=== PATIENT | female | born 1990 | race Caucasian/White ===

== ENCOUNTER 2017-07-19 08:55 | Day surgery (SDC) | payer OTHER ==
--- NOTE | 2017-07-18 18:10 | HISTORY & PHYSICAL EXAMINATION ---
DATE OF ADMISSION: 07/19/2017 CHIEF COMPLAINT: demise at 8 weeks 6 days. HISTORY OF PRESENT ILLNESS: The patient is a 27-year-old 3, para 1, had 1 previous AB. Her general health is complicated by an endometriosis. She has had 2 laparoscopies. She had a previous full term . Last menstrual period for this is uncertain, it was sometime in April 2017. She has been on Diclegis and vitamins for nausea and vomiting. She underwent her first ultrasound on 07/18/2017 which showed an intrauterine of 8 weeks 6 days. No yolk sac, no heartbeat, presently being scheduled for an outpatient D&E. PAST MEDICAL HISTORY: She has 1 child in good health. ALLERGIES: She has no known drug allergies. PAST SURGICAL HISTORY: She has had 2 laparoscopies. MEDICAL HISTORY: She has had nausea associated with her . SOCIAL HISTORY: No smoking, no excessive alcohol intake. She is employed. FAMILY HISTORY: Mom is 59 and has arthritis. Father 59 diabetes. One brother and one sister have congenital hearing loss. REVIEW OF SYSTEMS: HEAD: No symptoms of frequent or severe headaches. EYES: No symptoms of blurred vision, double vision. EARS: No symptoms of frequent ear infections, difficulty hearing. NOSE: No symptoms of frequent nosebleeds, difficulty breathing through her nose. THROAT: No symptoms of frequent or severe sore throat, difficulty swallowing. RESPIRATORY SYSTEM: No history of asthma, chest pain, shortness of breath. PHYSICAL EXAMINATION: GENERAL: Well-developed, well-nourished 27-year-old white female, alert, oriented x3 and cooperative in no acute distress, appears stated age. EYES: Conjunctivae are pink, sclerae white, no evidence of jaundice. EARS: Had normal light reflex bilaterally. NOSE: Had normal mucosa. Septum is midline. There were no polyps. THROAT: No erythema or evidence of infection. Teeth are in good state of repair. HEAD: Was normocephalic, normal distribution of hair. NECK: Supple. Trachea midline. Thyroid is not enlarged. There is no adenopathy appreciated. Both carotids are of good intensity. CHEST: Clear to auscultation and percussion. No wheezes, rales or rhonchi appreciated. HEART: Regular rhythm. S1 and S2 are normal. BREASTS: Normal. ABDOMEN: Soft and nontender. PELVIC: Revealed normal-appearing cervix. Uterus was 8-9 weeks' gestational size. No adnexal masses appreciated. MUSCULOSKELETAL: Revealed no calf tenderness. IMPRESSIONS OF THIS CASE: Status post 2 laparoscopies and demise at 8 weeks and 6 days' gestation. MTDD
[~2017-07-19] VITALS: Ht 165.1 cm; Wt 69.4 kg
[~2017-07-19 08:55] MED LIST: ALBUAER INH; PRENTAB26 PO
[2017-07-19 09:17] VITALS: BP 107/61; PULSE 80; TEMP 37.3; O2SAT 100; Ht 165.1 cm; Wt 69.4 kg
[2017-07-19] MEDS ORDERED: MIDAZOLAM HCL 1 MG/ML 2ML VIAL ONE (09:17)
[2017-07-19] MEDS ORDERED: FENTANYL CITRATE INJ 50 MCG/1 ML 2 ML VIAL ONE (09:17)
--- NOTE | 2017-07-19 09:35 | History & Physical Bridge Note ---
H&P Re-Evaluation Bridge Note: I have examined the patient, reviewed the History & Physical and in the interval since the performance of the History & Physical I have noted the following changes of clinical significance: No changes noted
[2017-07-19] MEDS ORDERED: LIDOCAINE HCL 2% 2 ML VIAL (20MG/ML) ONE (10:14)
[2017-07-19] MEDS ORDERED: PROPOFOL IV EMULSION 10 MG/ML 20 ML VIAL IV ONE (10:14)
[2017-07-19] MEDS ORDERED: OXYTOCIN INJ 10 UNITS/ML VIAL ONE (10:14)
[2017-07-19] MEDS ORDERED: DEXAMETHASONE SOD INJ 4 MG/ML VIAL ONE (10:14)
[2017-07-19] MEDS ORDERED: ONDANSETRON INJ 2 MG/ML 2 ML VIAL ONE (10:14)
[2017-07-19] MEDS ORDERED: SODIUM CHLORIDE 0.9% 1000ML 1,000 ML IV SCH (10:26)
--- NOTE | 2017-07-19 10:29 | [facility] Post Operative Brief Note ---
Immediate Operative Summary Operative Date Jul 19, 2017. Pre-Operative Diagnosis Missed Post-Operative Diagnosis Missed Procedure(s) Performed Dilation and Evacuation Surgeon Dr Danielson Mushroom Grower Surgeon(s) None Estimated Blood Loss 50 ML Findings 8 WEEKS SIZE UTERUS Specimens A: Products of conception Complication(s) None Disposition Recovery Room / PACU
[2017-07-19] MEDS ORDERED: IBUPROFEN 600 MG TAB PO PRN (10:30)
[2017-07-19] MEDS ORDERED: OXYCODONE/ACETAMINOPHEN 5-325 TAB PO PRN (10:30)
[2017-07-19] MEDS ORDERED: HYDROCODONE/ACETAMIN 5/325MG TAB PO PRN ×2 (10:30)
[2017-07-19] MEDS ORDERED: KETOROLAC TROMETHAMINE 30 MG/ML VIAL IV. PRN (10:30)
[2017-07-19] MEDS ORDERED: ONDANSETRON INJ 2 MG/ML 2 ML VIAL IV PRN ×2 (10:30→10:45)
--- NOTE | 2017-07-19 10:31 | Discharge Instructions ---
Discharge Instructions Date of Service Jul 19, 2017. Visit Reason for Visit: Missed Discharge Discharge Diagnosis / Problem: DEMISE AT 8 WEEKS GESTATION Discharge Goals Goal(s): Therapeutic intervention Activity Recommendations Activity Limitations: as noted below ACTIVITY RECOMMENDATIONS: * Avoid tampons, douching, hot tubs, pools, and intercourse until bleeding has stopped. * May shower as usual. * No strenuous activity for 24-48 hours. After 24-48 hours, you may do anything you feel like doing (driving and sports are okay). SPECIAL CARE INSTRUCTIONS: Special Diet: * Mild nausea may occur in the immediate post-operative period. * Take clear liquids such as tea, cola or bouillon until all nausea has subsided; you may then resume your normal diet. Special Care: * Light bleeding and vaginal spotting can last from a few days to 3-4 weeks. Call your doctor if bleeding becomes heavier than the heaviest part of your period. * Check your temperature twice a day for one week. If it goes above 100.4 degrees Fahrenheit (38.0 Celsius), notify your doctor. * Call your doctor's office for an appointment for 6 weeks after your surgery. FOLLOW-UP VISIT: Call your doctor's office for an appointment for 6 weeks after your surgery. Anesthesia . Post Anesthesia Instructions: If you have had General Anesthesia or IV Sedation: * Do not drive today. * Resume driving when surgeon permits. * Do not make important decisions or sign legal documents today. * Call surgeon for: 1. Temperature elevations greater than 101 degrees F. 2. Uncontrollable pain. 3. Excessive bleeding. 4. Persistent nausea and vomiting. 5. Medication intolerance (nausea, vomiting or rash). * For nausea and vomiting use only clear liquids such as: tea, soda, bouillon until nausea subsides, then gradually increase diet as tolerated. * If you have any concerns or questions, call your surgeon's office. If physician is unavailable and it is an emergency, call 911 or go to the nearest emergency room. . Instructions / Follow-Up Instructions / Follow-Up ACTIVITY RECOMMENDATIONS: * Avoid tampons, douching, hot tubs, pools, and intercourse until bleeding has stopped. * May shower as usual. * No strenuous activity for 24-48 hours. After 24-48 hours, you may do anything you feel like doing (driving and sports are okay). SPECIAL CARE INSTRUCTIONS: Special Diet: * Mild nausea may occur in the immediate post-operative period. * Take clear liquids such as tea, cola or bouillon until all nausea has subsided; you may then resume your normal diet. Special Care: * Light bleeding and vaginal spotting can last from a few days to 3-4 weeks. Call your doctor if bleeding becomes heavier than the heaviest part of your period. * Check your temperature twice a day for one week. If it goes above 100.4 degrees Fahrenheit (38.0 Celsius), notify your doctor. * Call your doctor's office for an appointment for 6 weeks after your surgery. FOLLOW-UP VISIT: Call your doctor's office for an appointment for 6 weeks after your surgery. Diet Recommendations Recommended Home Diet: resume previous diet Procedures Procedures Performed: Dilation and Evacuation Pending Studies Studies pending at discharge: no Medical Emergencies . Who to Call and When: Medical Emergencies: If at any time you feel your situation is an emergency, please call 911 immediately. . Non-Emergent Contact Non-Emergency issues call your: [employer] Maker Call Non-Emergent contact if: temperature is above 100.5 . . "Provider Documentation" section prepared by Bandar Danielson. .
--- NOTE | 2017-07-19 10:44 | OPERATIVE REPORT ---
DATE OF OPERATION: 07/19/2017 PROCEDURE: Suction sharp evacuation of uterine cavity. INDICATIONS FOR SURGERY: Intrauterine demise at 8+ weeks gestation. PREOPERATIVE DIAGNOSIS: demise at 8 weeks gestation. POSTOPERATIVE DIAGNOSIS: Same. PATHOLOGY: Pending. SURGEON: Dr. Danielson. ESTIMATED BLOOD LOSS: 50 mL ANESTHESIA: General. OPERATIVE FINDINGS AND PROCEDURE: The patient was brought to the OR table, correctly identified by armband and conversation. General anesthesia was administered. The patient was positioned on the OR table in candy cane stirrups. Perineum and vagina were painted with Betadine paint, draped in usual sterile fashion. Catheter was used to empty the bladder. Careful pelvic exam under anesthesia revealed an 8-9 weeks' size uterus, which was anteverted. There were no adnexal masses appreciated. A weighted speculum was placed in the posterior vagina. Anterior lip of the cervix was grasped with an Allis. Cervix was dilated with graduated dilators and then a #8 suction curette was placed in the uterine cavity. Suction was applied, amniotic fluid and placental tissue could be seen coming through the curette. Following evacuation with the suction curette, a sharp curette was placed in the uterine cavity. All 4 quadrants were gently curetted. There were additional pieces of placental tissue that were removed and then the suction curette was reapplied to remove all remaining tissue fragments and blood clots. Following this, instruments were removed and with IM Methergine and IV Pitocin running and a bimanual massage, the uterus contracted nicely. Hemostasis was good. The patient tolerated the procedure well and left the OR in good condition. I attest to the content of the Intraoperative Record and any orders documented therein. Any exception s are noted below.
[2017-07-19] MEDS ORDERED: EpHEDrine SULFATE INJ 50 MG/ML AMP IV PRN (10:45)
[2017-07-19] MEDS ORDERED: ATROPINE SULFATE 0.1 MG/ML 5ML SYR IV PRN (10:45)
[2017-07-19] MEDS ORDERED: FENTANYL CITRATE INJ 50 MCG/1 ML 2 ML VIAL IV PRN (10:45)
[2017-07-19] MEDS ORDERED: METHYLERGONOVINE MALEATE 0.2 MG/ML AMP ONE (10:48)
--- NOTE | 2017-07-19 11:16 | Anesthesiology Progress Note ---
Anesthesia Post Op Note Date & Time Jul 19, 2017 at 11:16 Vital Signs Pain Intensity: 0 Vital Signs Past 12 Hours Date Time Temp Pulse Resp B/P (MAP) Pulse Ox O2 Delivery O2 Flow Rate FiO2 07/19/17 11:00 75 17 102/65 100 Room Air 07/19/17 10:50 86 13 112/73 100 Oxymask 10 07/19/17 10:40 64 12 91/52 99 Oxymask 10 07/19/17 10:34 36.1 63 12 89/59 98 Oxymask 10 07/19/17 09:17 37.3 80 18 107/61 (76) 100 Room Air Notes Mental Status: alert / awake / arousable, participated in evaluation Pt Amnestic to Procedure: Yes Nausea / Vomiting: adequately controlled Pain: adequately controlled Airway Patency, RR, SpO2: stable & adequate BP & HR: stable & adequate Hydration State: stable & adequate Anesthetic Complications: no major complications apparent
[2017-07-19 11:30] VITALS: BP 99/56; PULSE 70; TEMP 36.8; O2SAT 99
[2017-07-19 12:00] VITALS: BP 98/55; PULSE 66; TEMP 36.8; O2SAT 99
== END 2017-07-19 12:15 | disposition home or self-care (01) ==
LOC: C.ACU 08:55
PROVIDERS: ATTEND Obstetrics & Gynecology
DX: O02.1 Missed abortion (principal); J45.909 Unspecified asthma, uncomplicated; Z82.61 Family history of arthritis; Z83.3 Family history of diabetes mellitus

== ENCOUNTER 2022-04-08 05:06 | Inpatient (IN) ==
--- NOTE | 2022-03-28 15:41 | PAT Medication Instructions ---
Medication Instructions Date of Service March 28, 2022 Home Medications Collagen Liquid 2 dose PO DAILY albuterol sulfate 90 mcg/actuation aerosol inhaler 2 puff inhalation UD PRN ASTHMA biotin 5,000 mcg disintegrating tablet 5,000 mcg PO DAILY STOP taking 2 weeks before surgery (or as soon as possible if surgery is within 2 weeks) Collagen Liquid 2 dose PO DAILY DO NOT take the morning of surgery biotin 5,000 mcg disintegrating tablet 5,000 mcg PO DAILY Take morning of surgery With a small sip of water, OTHERWISE NOTHING TO EAT OR DRINK AFTER MIDNIGHT: albuterol sulfate 90 mcg/actuation aerosol inhaler 2 puff inhalation UD PRN ASTHMA (use if needed; please bring rescue inhaler with you to hospital day of surgery if possible) Take evening before surgery albuterol sulfate 90 mcg/actuation aerosol inhaler 2 puff inhalation UD PRN ASTHMA (if needed) Other Notes If you have any questions please call us at [phone] or [phone] or [phone] or [phone]
--- NOTE | 2022-03-31 14:25 | Anesthesiology Consultation ---
Date of Service March 31, 2022 Assessment & Plan (1) Encounter for pre-operative examination: - COVID screening: Per assessment on 03/31: No known COVID-19 positive contacts or current COVID-19 related symptoms. Travel screen negative x2+ weeks. At surgeon discretion if preop Covid testing being done. - S/P Laparoscopic evaluation (12/31/2020): MAC#3, ETT 7.0, atraumatic at [facility]. No issues noted per post-op anesthesia progress note. - Check test AM DOS Chart Review Chart Review: Acceptable Risk for Surgery and Patient seen in Pre Admission Testing Teaching & Discussion Pre-Anesthesia Teaching/Discussion Notes: Instructed NPO after midnight before surgery,except medications with 15 cc of water. Medication instructions provided according to the PAT guidelines. History Surgery Operation Date: 04/08/22 11:15 Proposed Procedures p Total Abdominal Hysterectomy - Bandar Danielson MD Height/Weight Height: 5 ft 5 in Weight: 67 kg Allergies Allergy/AdvReac Type Severity Reaction Status Date / Time adhesive Allergy Unknown Rash Verified 03/31/22 14:22 (bandaids) Medications Home Medications Medication Instructions Recorded Confirmed Last Taken Collagen Liquid 2 dose PO DAILY 12/10/20 03/28/22 Unknown albuterol sulfate 90 mcg/actuation 2 puff inhalation UD PRN ASTHMA 12/10/20 03/28/22 Unknown aerosol inhaler biotin 5,000 mcg disintegrating 5,000 mcg PO DAILY 12/10/20 03/28/22 Unknown tablet Vitamin D 1 tab PO DAILY 03/31/22 Unknown Past Medical History Medical History Asthma Controlled Endometriosis History of blood pressure problems Gestational elevated BPs History of hemolysis, elevated liver enzymes, and low platelet (HELLP) syndrome History of pre-eclampsia Exercise / Class Metabolic Activity II 4-5 Yardwork/Stairs/Walk up hill (one FS (no CP, no SOB)) Past Family History Family History Aunt Family history of colon cancer Family history of brain cancer Uncle Family history of colon cancer Aunt Family history of colon cancer Uncle Family history of colon cancer Uncle Family history of colon cancer Uncle Family history of colon cancer Uncle Family history of colon cancer Uncle Family history of colon cancer Uncle Family history of colon cancer Other Family history of diabetes mellitus in father Past Surgical History Surgical History History of D&C History of gynecologic surgery Lap eval x2, prolapsed bladder Laparoscopic evaluation (12/31/2020): MAC#3, ETT 7.0, atraumatic at [facility]. No issues noted per post-op anesthesia progress note. Hx of wisdom tooth extraction Past Anesthesia History No Hx of Anesthesia Complications and No Family Hx of Anesthesia Complications History of PONV No Hx of PONV and Hx of Motion Sickness (+ boats) Social History Smoking Status: Never smoker Do You Dip or Chew Tobacco: No Hx Alcohol Use: Yes Alcohol type: wine ("Bottle wine/week") Hx Substance Use: No substance use type: does not use Review of Systems Patient denies chest pain, shortness of breath, dyspnea on exertion, fever, chills, cough, wheezing, palpitations. Physical Exam Vital Signs VITALS BP 97/67 (chronic low-normal BPs, asympomatic) P 82 TEMP 98.3 SP02 98%RA RESP 16 PHYSICAL Full cervical extension range of motion. Full TMJ range of motion. TMD 3 finger breaths Mallampati Score 1 Dentition: intact Lungs: clear throughout to auscultation Cardiac: regular rate and rhythm, no murmurs noted Spine: normal Extremities: no edema Lab Results Anesthesia Preop Results Results Anesthesia Widget: WBC 5.01 K/ul (4.8-10.8) 03/31/22 Hgb 12.8 g/dl (12.0-16.0) 03/31/22 Hct 39.0 % (34.1-44.9) 03/31/22 Plt 225 K/uL (130-400) 03/31/22 Na 139 mmol/L (136-145) 03/31/22 K 4.1 mmol/L (3.5-5.1) 03/31/22 Cl 105 mmol/L (98-107) 03/31/22 CO2 28 mmol/L (21-32) 03/31/22 BUN 12 mg/dl (6-23) 03/31/22 Creat 0.80 mg/dl (0.6-1.2) 03/31/22 Glucose Level 92 mg/dl (70-99(Fasting)) 03/31/22 PT 11.2 Seconds (9.0-12.0) 03/31/22 PTT 28.0 Seconds (21.0-31.0) 03/31/22 INR 1.1 (0.9-1.1) 03/31/22 Blood Type O Positive 03/31/22 Antibody Screen NEGATIVE 03/31/22
--- NOTE | 2022-04-07 14:57 | History and Physical Report ---
DATE OF ADMISSION: 04/08/2022 CHIEF COMPLAINT: Pelvic pain, severe dysmenorrhea, dyspareunia. HISTORY OF PRESENT ILLNESS: The patient is a 31-year-old 4, para 2. She has had 2 spontaneo us ABs. General health has been complicated by a long-term history of diagnosis. Her last was a complicated high-risk , delivered at [facility]. She has a history of worsening pelvic ronaldo n for over a year and a half consists of severe pain with her periods, the pain extending prior to he r periods and after her periods. Also, her periods are heavy with a lot of clotting, heavy bleeding, soaking over a pad an hour with difficulty being able to leave the house when she is having her perio ds. Along with severe pain that she has with her periods and prior to getting her period, she has had severe pain with intercourse, specifically pain on deep penetration. She has had previous diagnosti c laparoscopies and she is presently being scheduled for total abdominal hysterectomy with preservati on of the ovaries and suspension of the vaginal cuff. ALLERGIES: She has no known drug allergies. PAST SURGICAL HISTORY: In the past, she has had 3 diagnostic laparoscopies, 2 D and Cs. FAMILY HISTORY: She has 2 children, in good health. Her mother is 64, has a history of ruptured bow el. Father is 64, in good health. One brother and one sister in good health. SOCIAL HISTORY: No smoking, no excessive alcohol intake. Self-employed. REVIEW OF SYSTEMS: HEAD: No symptoms of frequent or severe headaches. EYES: No symptoms of blurred vision or double vision. EARS: No symptoms of frequent ear infection or difficulty hearing. NOSE: No symptoms of frequent nosebleeds or difficulty breathing through her nose. THROAT: No symptoms of frequent or severe sore throats or difficulty swallowing. PHYSICAL EXAMINATION: GENERAL: Revealed a well-developed, well-nourished 31-year-old white female, alert, oriented x3, sales promotion coordinator perative, in no acute distress, appeared her stated age. EYES: Conjunctivae are pink. Sclerae white, no evidence of jaundice. ENT: Ears had normal light reflex bilaterally. Nose had normal mucosa. Septum is midline. There w ere no polyps. Throat had no erythema or evidence of infection. Teeth in good state of repair. HEAD: Normocephalic, normal distribution of hair. NECK: Supple. Trachea midline. Thyroid is not enlarged. There is no adenopathy appreciated. Both carotids are of good intensity. CHEST: Clear to auscultation and percussion. No wheezes, rales or rhonchi appreciated. HEART: Had regular rhythm. S1 and S2 are normal. BREASTS: Normal. ABDOMEN: Soft and nontender. PELVIC: Revealed a normal-appearing cervix. Uterus was top normal size, anteverted. There was tend erness and nodularity of the uterosacral ligaments. MUSCULOSKELETAL: Revealed no calf tenderness. IMPRESSION OF THIS CASE: Status post 2 dilation and curettages, status post 3 diagnostic laparoscopi es and symptomatic endometriosis. Job ID: [id number]
[2022-04-08] MEDS ORDERED: LR 15ML/HR IV SCH (06:00)
[2022-04-08] MEDS ORDERED: ACETAMINOPHEN 1000 MG/100 ML IV IV ONE (06:35)
[2022-04-08] MEDS ORDERED: SCOPOLAMINE 1 MG TDSY TD ONE (06:35)
[2022-04-08] MEDS ORDERED: FAMOTIDINE/PF 20 MG/2 ML VIAL IV ONE (06:36)
[2022-04-08] MEDS ORDERED: MIDAZOLAM HCL 1 MG/ML 2ML VIAL ONE (06:49)
[2022-04-08] MEDS ORDERED: fentaNYL citrate 100 MCG/2 ML VIAL ONE (06:50)
[2022-04-08] MEDS ORDERED: LIDOCAINE 2% 2 ML VIAL/AMP(20MG/ML) INFIL ONE (06:51)
[2022-04-08] MEDS ORDERED: PROPOFOL IV EMULSION 10 MG/ML 20 ML VIAL IV ONE ×2 (06:52)
[2022-04-08] MEDS ORDERED: ROCURONIUM BROMIDE 10 MG/ML 5 ML VIAL IV ONE (06:53)
[2022-04-08] MEDS ORDERED: METOCLOPRAMIDE HCL INJ 5 MG/ML 2 ML VIAL ONE (06:53)
[2022-04-08] MEDS ORDERED: DEXAMETHASONE SOD INJ 4 MG/ML VIAL ONE (06:53)
[2022-04-08] MEDS ORDERED: ONDANSETRON INJ 2 MG/ML 2 ML VIAL ONE (06:54)
[2022-04-08] MEDS ORDERED: NEOSTIGMINE METHYLSULFATE 1 MG/ML 10ML VIAL ONE (06:54)
[2022-04-08] MEDS ORDERED: GLYCOPYRROLATE 0.2 MG/ML VIAL ONE (06:54)
[2022-04-08] MEDS ORDERED: HYDROmorphone INJ 2 MG/ML SYR/VIAL ONE (06:55)
[2022-04-08] MEDS ORDERED: WATER, STERILE FOR INJ 10 ML VIAL ONE (06:56)
[2022-04-08] MEDS ORDERED: LARYING-O-JET KIT (LTA) ONE (06:59)
[2022-04-08] MEDS ORDERED: ATROPINE SULFATE 0.1 MG/ML 10ML SYR IV PRN (06:59)
[2022-04-08] MEDS ORDERED: ONDANSETRON INJ 2 MG/ML 2 ML VIAL IV PRN ×2 (06:59→09:51)
[2022-04-08] MEDS ORDERED: ePHEDrine sulfate 50 MG/ML AMP IV PRN ×2 (06:59→10:46)
[2022-04-08] MEDS ORDERED: MoRPHine SULFATE PF 1 MG/ML 10 ML AMP/VIAL ONE (07:00)
[2022-04-08] MEDS ORDERED: ceFAZolin 2000MG 2,000 MG/15 ML SYR IV ONE (07:14)
[2022-04-08] MEDS ORDERED: ceFAZolin 2,000 MG/15 ML IV PUSH IV ONE (07:15)
--- NOTE | 2022-04-08 07:15 | History & Physical Bridge Note ---
Date of Service April 08, 2022 History & Physical Bridge Note I have examined the patient, reviewed the History & Physical and in the interval since the performance of the History & Physical I have noted the following changes of clinical significance: no changes noted
[2022-04-08] MEDS ORDERED: HEPARIN (PORCINE) 1000 UNIT/ML 10 ML (CATH LAB USE ONLY) ONE (07:17)
[2022-04-08] MEDS ORDERED: ePHEDrine sulfate 50 MG/ML AMP ONE (08:08)
[2022-04-08] MEDS ORDERED: KETOROLAC 30 MG/ML VIAL ONE (09:25)
[2022-04-08] MEDS ORDERED: MEPERIDINE HCL 50 MG/ML CARP IV PRN (09:51)
[2022-04-08] MEDS ORDERED: MAGNESIUM HYDROXIDE SUSP 30 ML UDC PO PRN (09:51)
[2022-04-08] MEDS ORDERED: KETOROLAC 30 MG/ML VIAL IV PRN (09:51)
[2022-04-08] MEDS ORDERED: SENNA 8.6 MG TAB PO PRN (09:51)
[2022-04-08] MEDS ORDERED: bisacodyL 10 MG SUPP PR PRN (09:51)
[2022-04-08] MEDS ORDERED: PROMETHAZINE HCL 25 MG in SODIUM CHLORIDE 0.9% 50 ML IV PRN (09:51)
[2022-04-08] MEDS: fentaNYL citrate 100 MCG/2 ML VIAL IV PRN ×5 (10:15→10:53)
--- NOTE | 2022-04-08 10:28 | Operative Report (OR) ---
PROCEDURE: Total abdominal hysterectomy, suspension of vaginal cuff. INDICATIONS FOR SURGERY: Pelvic pain, heavy vaginal bleeding. PREOPERATIVE DIAGNOSIS: Biopsy-proven endometriosis. POSTOPERATIVE DIAGNOSIS: Biopsy-proven endometriosis. Pathology pending. SURGEON: Denis Danielson MD ESTIMATED BLOOD LOSS: 75 mL. ANESTHESIA: General with spinal narcotics. OPERATIVE FINDINGS AND PROCEDURE: The patient was brought to the OR table, correctly identified by a rmband and conversation. Spinal narcotics were administered and general anesthesia was administered. Cagle catheter was inserted into the bladder, connected to gravity drainage. Compression stockings were applied. The vagina was painted with Betadine solution, then the lower abdomen was painted wit h an alcohol based sterilizing solution and draped in the usual sterile fashion. The Pfannenstiel in cision was made and carried down to the anterior fascia by sharp dissection. Hemostasis was secured by electrocauterization. Fascia was incised transversely, from the underlying muscle by bl unt and sharp dissection. Recti muscles were in the midline exposing the peritoneum, which was carefully raised and entered. O'Alfonso-O'Heredia self-retaining retractor was inserted into th e incision for laparotomy. Packs were used to retract the intestines and provide adequate exposure of the pelvic cavity. The fundus of the uterus was grasped with a double tooth tenaculum. The round l igaments on either side were suture ligated with a transfixion suture, chromic catgut, and tied and t hen proximal to this, a suture of silk, which gave an extra layer for hemostasis. Following this, th e round ligaments on either side were cut after clamping close to the uterus with a Jessica. Incision w as made above the vesicouterine fold. The bladder was pushed out of the operative field. The spool carrier ior leaf of the broad ligament was entered bluntly with the fingers and then the tube and ovarian lig ament was clamped proximally and distally, cut with cautery and then the distal portion was ligated w ith a transfixion suture, chromic catgut, and tied and then distal to that a suture of silk for addit ional hemostasis. Following this, the uterine vessels were skeletonized, clamped with a curved Koche r, cut with a stump, and then doubly ligated with a transfixion suture of chromic catgut and then the stumps were cauterized. The bladder was advanced out of the operative field. The cardinal ligament s were clamped by hugging the cervix and sliding down off the cervix cutting the cardinal ligament wi th a stump and then suturing it with a chromic gut suture. This was done in 3 steps because of the l ength of the cardinal ligament. We then shelled out the cervix with electrocauterization, thus remov ing the surgical specimen consisting of uterus and cervix. The angles of the vaginal cuff were sutur e ligated to the cardinal ligaments on either side, tied. Then, the anterior and posterior vaginal c uff was approximated front to back with a escfrh-nw-vcbjx suture at each angle, which was anchored in to the cardinal ligaments. Then the mid portion was whipstitched open with a continuous chromic gut suture. Carson drain with a safety pin was placed in the vaginal canal. The end was then placed in the cul-de-sac. We brought the round ligaments down, tied them to the stumps of the cardinal ligame nts and vaginal cuff sutures for elevation. We then reperitonealized burying all the proximal stumps , reperitonealized from the right to the middle and then from the left to the middle, and before the reperitonealization, I did a keztny-py-cxpey suture with a heavy duty Vicryl. Posteriorly the uteros acral ligaments were approximated and tied into the posterior portion of the cuff for additional susp ension. After reperitonealization, the two sutures were tied to each other. The end of the Carson drain was placed in the cul-de-sac. Hemostasis was excellent. Four packs were removed. Careful sherman tomical approximation of the anterior abdominal wall was performed. The peritoneum was closed with a continuous chromic gut suture. Recti muscles were approximated with interrupted kuazcv-rr-hmmhb sut ure chromic catgut. Fascia was closed with continuous interlocking suture of Vicryl on each side tie d in the midline. Subcutaneous was approximated with a continuous plain and skin edges were approxim ated with staple clips. The patient tolerated the procedure well. Job ID: [id number]
[2022-04-08] MEDS ORDERED: MoRPHine SULFATE PF 1 MG/ML 10 ML AMP/VIAL INT SPINAL ONE (10:46)
[2022-04-08] MEDS ORDERED: diphenhydrAMINE 50 MG/ML VIAL IV PRN (10:46)
[2022-04-08] MEDS ORDERED: LACTATED RINGER'S 500 ML IV PRN (10:46)
[2022-04-08] MEDS ORDERED: NALBUPHINE HCL INJ 10 MG/ML AMP IV PRN (10:46)
[2022-04-08] MEDS ORDERED: NALOXONE HCL 0.08 MG in SYRINGE 1.8 ML IV PRN (10:46)
[2022-04-08] MEDS ORDERED: NALOXONE HCL 1 MG in SODIUM CHLORIDE 0.9% 1000ML 1,000 ML IV PRN (10:46)
[2022-04-08] MEDS ORDERED: NALOXONE HCL 0.4 MG/1 ML VIAL/CARP IV PRN (10:46)
--- NOTE | 2022-04-08 10:46 | Anesthesiology Progress Note ---
Date of Service April 08, 2022 Anesthesia Post Procedure Vital Signs Vital Signs: Temp Pulse Pulse Resp BP BP Pulse Ox 04/08/22 10:35 97.5 F L 67 16 105/57 L 98 04/08/22 10:25 67 16 103/55 L 100 04/08/22 10:15 70 16 98/59 L 100 04/08/22 10:06 97.3 F L 76 16 104/60 100 04/08/22 05:38 98.4 F 70 16 108/71 100 O2 Del Method O2 Flow Rate 04/08/22 10:35 Room Air 04/08/22 10:25 Oxymask 5 04/08/22 10:15 Oxymask 5 04/08/22 10:06 Oxymask 5 04/08/22 05:38 Room Air Pain Intensity Lower Abdomen: Pain Intensity: 5 Transfer of Care Handoff Completed per policy Notes Mental Status: alert / awake / arousable and participated in evaluation Patient Amnestic to Procedure: Yes Nausea / Vomiting: adequately controlled Pain: adequately controlled Airway Patency, RR, SpO2: stable & adequate BP & HR: stable & adequate Hydration State: stable & adequate Anesthetic Complications: no major complications apparent and Pt Satisfied with anesthetic care
[2022-04-08] MEDS ORDERED: DC INTRASPINAL MORPHINE SCH (11:00)
[2022-04-08] MEDS ORDERED: NO NARCOTICS OR SEDATIVES SCH (11:00)
[2022-04-08] MEDS ORDERED: SODIUM CHLORIDE 0.9% 1000ML 1,000 ML IV SCH (11:00)
[2022-04-08] MEDS: D5W AND LACTATED RINGERS 1,000 ML IV SCH ×2 (11:12→18:14)
[2022-04-09] MEDS: D5W AND LACTATED RINGERS 1,000 ML IV SCH ×2 (01:46→13:45)
[2022-04-09 06:44] LABS: Hematocrit (blood only) 30.5 % (34.1-44.9); Hemoglobin 10.1 g/dl (12.0-16.0)
[2022-04-09] MEDS: oxyCODONE/ACETAMINOPHEN 5mg/325mg TAB PO PRN ×3 (08:17→19:11)
[2022-04-09] MEDS: IBUPROFEN 600 MG TAB PO PRN ×3 (08:18→19:12)
--- NOTE | 2022-04-09 13:06 | Obstetrical Progress Note ---
Date of Service April 09, 2022 Assessment & Plan Admission and Anticipated Discharge Date Admission Date: April 08, 2022 Subjective abdomen soft and non tender bandage removed incision is clean and dry no calf tenderness ambulating well vaginal bleeding scant hgb 10.1 Results & Data ([facility]) Vital Signs (Past 12 Hours) Vital Signs Temp Pulse Resp BP Pulse Ox O2 Del Method 04/09/22 08:10 37.6 C H 62 16 100/54 L 97 Room Air 04/09/22 04:35 17 95 04/09/22 03:35 16 97 04/09/22 02:35 16 96 04/09/22 03:10 36.8 C 63 16 98/57 L 96 Room Air 04/09/22 01:35 16 95
[2022-04-10] MEDS: oxyCODONE/ACETAMINOPHEN 5mg/325mg TAB PO PRN ×2 (03:35→09:23)
[2022-04-10] MEDS: IBUPROFEN 600 MG TAB PO PRN ×2 (03:35→09:23)
--- NOTE | 2022-04-10 09:24 | Obstetrical Progress Note ---
Date of Service April 10, 2022 Assessment & Plan Admission and Anticipated Discharge Date Admission Date: April 08, 2022 Subjective abdomen soft and non tender incision is clean and dry no calf tenderness ambulating well vaginal bleeding scant hgb 10.1 Results & Data ([facility]) Vital Signs (Past 12 Hours) Vital Signs Temp Pulse Resp BP Pulse Ox O2 Del Method 04/09/22 22:50 37.2 C 71 18 94/57 L 97 Room Air
--- NOTE | 2022-04-10 09:57 | Discharge Summary (DS) ---
HOSPITAL COURSE: Ms. Kennedy was admitted with a diagnosis of pelvic pain. She had diagnostic laparos copies in the past. She had biopsy proven endometriosis on one of those biopsies. She also had heav y vaginal bleeding with flooding. The day of admission, she was taken to the OR where she underwent total abdominal hysterectomy with preservation of both ovaries and suspension of vaginal cuff. Her p reoperative hemoglobin was about 12 and postoperatively it was 10.1. She did well. She remained afe brile throughout her postoperative stay. Her bowel sounds returned within hours after the surgery. She was not able to go home on the first postoperative day because of the level of pain, but by the s econd postoperative day, pain was under control with a combination of Percocet and Motrin. Lyric drummond rain with a safety pin was removed from the vaginal cuff. She was ambulating well, eating well, tole rating a diet. She was given usual post-surgery instructions to call if she had temperature over 100 or any heavy bleeding and to make an appointment next week for removal of gauri. Job ID: [id number]
== END 2022-04-10 10:50 | disposition home or self-care (01) | DRG 743 ==
LOC: ASU 05:06 → 4E1 09:51